=== PATIENT | female | born 1965 | race Caucasian/White ===

== ENCOUNTER → 2016-08-31 | Outpatient (CLI) | payer OTHER | LOC: FIMAGING 10:07 | PROVIDERS: ATTEND Internal Medicine | DX: Z12.31 Encounter for screening mammogram for malignant neoplasm of breast (principal); Z98.82 Breast implant status | CPT/HCPCS: G0202 ==

== ENCOUNTER 2017-10-21 09:42 | Emergency (ER) | payer MEDICAID, OTHER ==
[2017-10-21 09:52] VITALS: BP 140/116
--- NOTE | 2017-10-21 10:25 | EDPHY ---
H & P Time Seen by Provider: 10/21/17 10:08 HPI/ROS: CHIEF COMPLAINT: Left wrist laceration HISTORY OF PRESENT ILLNESS: 52-year-old female [id number] was cutting a bagel in the bagel slipped sustained laceration to her radial aspect of her volar wrist. Tetanus up-to-date. No paresthesia or sensory or motor deficits distally. This was accidental. PHYSICAL EXAM (Prior to examination, patient consented to physical exam, hands were washed and my usual and customary physical exam procedures followed) 1) GENERAL: Well-developed, well-nourished, alert and oriented. Appears to be in no acute distress. 2) HEAD: Normocephalic 3) HEENT: Pupils equal, round, reactive to light bilaterally. 4) LUNGS: Breathing comfortably. 5) MUSCULOSKELETAL: Left wrist volar-radial aspect 2 cm well-demarcated linear laceration. Brisk radial pulse distally. Brisk ulnar pulse. Positive West test Soft compartments. Normal coloration. 6) SKIN: Normal coloration distally 7) VASCULAR: pulses and cap refill present are brisk 8) NEUROLOGIC: Radial, ulnar, median nerve function intact with no deficits appreciated on exam DIFFERENTIAL DIAGNOSIS: in no particular order including but not limited to vascular injury, tendon injury, skin laceration Smoking Status: Never smoked Constitutional: Initial Vital Signs Temperature (C) 36.6 C 10/21/17 09:47 Heart Rate 103 H 10/21/17 09:47 Respiratory Rate 18 10/21/17 09:47 Blood Pressure 140/116 H 10/21/17 09:47 O2 Sat (%) 97 10/21/17 09:47 O2 Delivery Mode Room Air Allergies/Adverse Reactions: morphine Allergy (Verified 10/21/17 09:46) Sulfa (Sulfonamide Antibiotics) Allergy (Verified 10/21/17 09:46) Home Medications: Medication Instructions Recorded Insulin Regular Human 10/21/17 Lexapro 10/21/17 SIMVASTATIN 10/21/17 MDM/Departure - MDM Procedures: Procedure: Laceration repair. I explained the indications, risks and benefits for both laceration repair and anesthetic administration. Verbal consent was obtained from the patient . The laceration on the left volar wrist was anesthetized using 0.5% bupivicaine with epinephrine . After anesthetic administered the patient was observed for a period of time and had no apparent adverse effects. The wound was cleaned, prepped, draped in normal sterile fashion and explored to its base. No foreign body seen, no foreign bodies palpated. There were no deep structures involved. No tendon or vascular injury was identified. The wound was repaired with 4 simple interrupted 5 O Prolene suture. The wound repair was simple. The procedure was performed by myself. Patient has been informed that scarring will occur, although efforts have been made to minimize this. Procedure: Splint A Velcro volar splint was applied by ER service technician copier in order to reduce stress on the laceration site. After application of the splint I returned and re- examined the patient. The splint was adequately immobilizing the joint and distal to the splint the patient's circulation and sensation were intact. Patient shows no signs of compartment syndrome. Was given orthopedic precautions. ED Course/Re-evaluation: I saw this patient independently based on established practice protocols. Care of patient under supervision of secondary supervising physician Dr Debbi Gillespie. - Depart Disposition: Home, Routine, Self-Care Clinical Impression: Laceration of wrist Qualifiers: Encounter type: initial encounter Laterality: left Qualified Code(s): S61.512A - Laceration without foreign body of left wrist, initial encounter Condition: Good Instructions: Laceration (ED), Care For Your Stitches (ED) Additional Instructions: Return to the ER if you develop redness, swelling, discharge, warmth to the wound, red streaks going up your arm, or any other symptoms that concern you. Referrals: Return, to the ER in 10 days for suture removal [Other] - As per Instructions
== END 2017-10-21 11:37 | disposition home or self-care (01) ==
PROC: 0HQDXZZ Repair Right Lower Arm Skin, External Approach (ICD-10-PCS; principal; 2017-10-21)
DX: S61.512A Laceration without foreign body of left wrist, initial encounter (principal); W45.8XXA Other foreign body or object entering through skin, initial encounter; Y99.8 Other external cause status; Y93.89 Activity, other specified

== ENCOUNTER → 2018-05-28 | Outpatient (CLI) | payer MEDICAID | LOC: FIMAGING 15:07 | PROVIDERS: ATTEND Orthopaedic Surgery Sports Medicine | DX: M23.222 Derangement of posterior horn of medial meniscus due to old tear or injury, left knee (principal); M87.852 Other osteonecrosis, left femur; M11.262 Other chondrocalcinosis, left knee; M71.22 Synovial cyst of popliteal space [Baker], left knee ==